=== PATIENT | female | born 1990 | race Caucasian/White ===

== ENCOUNTER 2017-04-26 18:09 | Inpatient (IN) | payer MEDICAID, OTHER ==
[2017-04-26] MEDS ORDERED: Ondansetron 4 MG/2 ML SDV IVPUSH ONE (18:41)
[2017-04-26] MEDS ORDERED: Sodium Chloride 0.9% 1,000 ML IV ONE ×3 (18:41→21:14)
--- NOTE | 2017-04-26 18:44 | EDM.PDOC ---
ED HPI GENERAL MEDICAL PROBLEM - General Chief Complaint: Gastrointestinal Problem Stated Complaint: ABDOMINAL PAIN, VOMITING, DEHYDRATION Time Seen by Provider: 04/26/17 18:41 Source of Information: Reports: Patient History Limitations: Reports: No Limitations - History of Present Illness INITIAL COMMENTS - FREE TEXT/NARRATIVE: History of present illness: [26-year-old female comes in with complaints of nausea vomiting diarrhea times the last 5 days] Review of systems: As per history of present illness and below otherwise all systems reviewed and negative. Past medical history: As per history of present illness and as reviewed below otherwise noncontributory. Surgical history: As per history of present illness and as reviewed below otherwise noncontributory. Social history: No reported history of drug or alcohol abuse. Family history: As per history of present illness and as reviewed below otherwise noncontributory. Physical exam: HEENT: Atraumatic, normocephalic, pupils reactive, negative for conjunctival pallor or scleral icterus, mucous membranes moist, throat clear, neck supple, nontender, trachea midline. Lungs: Clear to auscultation, breath sounds equal bilaterally, chest nontender. Heart: S1S2, regular, negative for clicks, rubs, or JVD. Abdomen: Soft, diffuse nonspecific tenderness throughout entire abdomen. Negative for masses or hepatosplenomegaly. Negative for costovertebral tenderness. Pelvis: Stable nontender. Genitourinary: Deferred. Rectal: Deferred. Extremities: Atraumatic, negative for cords or calf pain. Neurovascular unremarkable. Neuro: Awake, alert, oriented. Cranial nerves II through XII unremarkable. Cerebellum unremarkable. Motor and sensory unremarkable throughout. Exam nonfocal. 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 abdomen Pain Score (Numeric/FACES): 8 - Related Data Allergies Allergy/AdvReac Type Severity Reaction Status Date / Time No Known Allergies Allergy Verified 04/26/17 18:21 Home Meds: Home Meds Losartan Potassium 25 mg PO DAILY 04/26/17 [History] Venlafaxine [Effexor XR] 37.5 mg PO BEDTIME 04/26/17 [History] ED ROS GENERAL - Review of Systems Review Of Systems: See Below (See history of present illness) ED EXAM, GI/ABD - Physical Exam Exam: See Below (See history of present illness) Course - Vital Signs Last Recorded V/S: Last Vital Signs Temp 36.6 C 04/26/17 19:43 Pulse 61 04/26/17 20:25 Resp 18 04/26/17 20:25 BP 144/96 H 04/26/17 20:25 Pulse Ox 99 04/26/17 20:25 - Orders/Labs/Meds Orders: Active Orders 24 hr Category Date Time Status Abdomen Pelvis w Cont [CT] Stat Exams 04/26/17 19:46 Taken Sodium Chloride 0.9% [Normal Saline] 1,000 ml Med 04/26/17 21:14 Ordered IV STAT Sodium Chloride 0.9% [Normal Saline] 1,000 ml Med 04/26/17 21:14 Ordered IV STAT Medication Orders Sodium Chloride (Normal Saline) 1,000 mls @ 999 mls/hr IV STAT ONE Stop: 04/26/17 22:14 Sodium Chloride (Normal Saline) 1,000 mls @ 999 mls/hr IV STAT ONE Stop: 04/26/17 22:14 Labs: Laboratory Tests 04/26/17 04/26/17 04/26/17 Range/Units 19:00 19:00 19:00 WBC 18.92 H (4.0-11.0) K/uL RBC 5.34 (4.30-5.90) M/uL Hgb 16.1 H (12.0-16.0) g/dL Hct 47.1 H (36.0-46.0) % MCV 88.2 (80.0-98.0) fL MCH 30.1 (27.0-32.0) pg MCHC 34.2 (31.0-37.0) g/dL RDW Std Deviation 45.1 (28.0-62.0) fl RDW Coeff of Sherwin 14 (11.0-15.0) % Plt Count 292 (150-400) K/uL MPV 10.70 (7.40-12.00) fL Neut % (Auto) 92.8 H (48.0-80.0) % Lymph % (Auto) 4.2 L (16.0-40.0) % [place] % (Auto) 2.9 (0.0-15.0) % Eos % (Auto) 0.0 (0.0-7.0) % Baso % (Auto) 0.1 (0.0-1.5) % Neut # (Auto) 17.6 H (1.4-5.7) K/uL Lymph # (Auto) 0.8 (0.6-2.4) K/uL [place] # (Auto) 0.6 (0.0-0.8) K/uL Eos # (Auto) 0.0 (0.0-0.7) K/uL Baso # (Auto) 0.0 (0.0-0.1) K/uL Nucleated RBC % 0.0 /100WBC Nucleated RBCs # 0 K/uL Lactate (0.20-2.00) mmol/L Sodium 146 (136-146) mmol/L Potassium 3.8 (3.5-5.1) mmol/L Chloride 111 H (98-110) mmol/L Carbon Dioxide 23 (21-31) mmol/L BUN 19 (6.0-23.0) mg/dL Creatinine 0.9 (0.6-1.5) mg/dL Est Cr Clr Drug Dosing TNP Estimated GFR (MDRD) > 60.0 ml/min Glucose 176 H (60-110) mg/dL Hemoglobin A1c (0.0-6.0) % Calcium 9.3 (8.8-10.8) mg/dL Total Bilirubin 0.6 (0.1-1.5) mg/dL AST 13 (5-40) IU/L ALT 11 (8-54) IU/L Alkaline Phosphatase 64 (40-150) Total Protein 8.0 (6.0-8.0) g/dL Albumin 5.0 (3.5-5.0) g/dL Globulin 3.0 (2.0-3.5) g/dL Albumin/Globulin Ratio 1.7 (1.3-2.8) Amylase 47 (10-90) U/L Lipase 9 (7-80) U/L HCG, Qual NEGATIVE (NEG) Urine Color Urine Appearance Urine pH (5.0-8.0) Ur Specific [place] (1.001-1.035) Urine Protein (NEGATIVE) mg/dL Urine Glucose (UA) (NEGATIVE) mg/dL Urine Ketones (NEGATIVE) mg/dL Urine Occult Blood (NEGATIVE) Urine Nitrite (NEGATIVE) Urine Bilirubin (NEGATIVE) Urine Ictotest Urine Urobilinogen (<2.0) EU/dL Ur Leukocyte Esterase (NEGATIVE) Urine RBC (0-2/HPF) Urine WBC (0-5/HPF) Ur Epithelial Cells (NONE-FEW) Urine Bacteria (NEGATIVE) Urine Mucus (NONE-MOD) 04/26/17 04/26/17 04/26/17 Range/Units 19:00 19:45 19:55 WBC (4.0-11.0) K/uL RBC (4.30-5.90) M/uL Hgb (12.0-16.0) g/dL Hct (36.0-46.0) % MCV (80.0-98.0) fL MCH (27.0-32.0) pg MCHC (31.0-37.0) g/dL RDW Std Deviation (28.0-62.0) fl RDW Coeff of Sherwin (11.0-15.0) % Plt Count (150-400) K/uL MPV (7.40-12.00) fL Neut % (Auto) (48.0-80.0) % Lymph % (Auto) (16.0-40.0) % [place] % (Auto) (0.0-15.0) % Eos % (Auto) (0.0-7.0) % Baso % (Auto) (0.0-1.5) % Neut # (Auto) (1.4-5.7) K/uL Lymph # (Auto) (0.6-2.4) K/uL [place] # (Auto) (0.0-0.8) K/uL Eos # (Auto) (0.0-0.7) K/uL Baso # (Auto) (0.0-0.1) K/uL Nucleated RBC % /100WBC Nucleated RBCs # K/uL Lactate 2.4 H (0.20-2.00) mmol/L Sodium (136-146) mmol/L Potassium (3.5-5.1) mmol/L Chloride (98-110) mmol/L Carbon Dioxide (21-31) mmol/L BUN (6.0-23.0) mg/dL Creatinine (0.6-1.5) mg/dL Est Cr Clr Drug Dosing Estimated GFR (MDRD) ml/min Glucose (60-110) mg/dL Hemoglobin A1c 5.3 (0.0-6.0) % Calcium (8.8-10.8) mg/dL Total Bilirubin (0.1-1.5) mg/dL AST (5-40) IU/L ALT (8-54) IU/L Alkaline Phosphatase (40-150) Total Protein (6.0-8.0) g/dL Albumin (3.5-5.0) g/dL Globulin (2.0-3.5) g/dL Albumin/Globulin Ratio (1.3-2.8) Amylase (10-90) U/L Lipase (7-80) U/L HCG, Qual (NEG) Urine Color YELLOW Urine Appearance SLT CLOUDY Urine pH 6.0 (5.0-8.0) Ur Specific [place] >= 1.030 (1.001-1.035) Urine Protein 100 (NEGATIVE) mg/dL Urine Glucose (UA) NEGATIVE (NEGATIVE) mg/dL Urine Ketones TRACE H (NEGATIVE) mg/dL Urine Occult Blood TRACE-INTACT (NEGATIVE) Urine Nitrite NEGATIVE (NEGATIVE) Urine Bilirubin SMALL H (NEGATIVE) Urine Ictotest NEGATIVE Urine Urobilinogen 0.2 (<2.0) EU/dL Ur Leukocyte Esterase NEGATIVE (NEGATIVE) Urine RBC 0-1 (0-2/HPF) Urine WBC 0-1 (0-5/HPF) Ur Epithelial Cells FEW (NONE-FEW) Urine Bacteria 1+ H (NEGATIVE) Urine Mucus HEAVY (NONE-MOD) Meds: Medications Generic Name Dose Route Start Last Admin Trade Name Freq PRN Reason Stop Dose Admin Sodium Chloride 1,000 mls @ 999 mls/hr 04/26/17 21:14 Normal Saline IV 04/26/17 22:14 STAT ONE Sodium Chloride 1,000 mls @ 999 mls/hr 04/26/17 21:14 Normal Saline IV 04/26/17 22:14 STAT ONE Discontinued Medications Generic Name Dose Route Start Last Admin Trade Name Freq PRN Reason Stop Dose Admin Sodium Chloride 1,000 mls @ 999 mls/hr 04/26/17 18:41 04/26/17 18:43 Normal Saline IV 04/26/17 19:41 999 mls/hr STAT ONE Administration Iopamidol 60 ml 04/26/17 19:52 04/26/17 19:53 Isovue Multipack-370 (76%) IVPUSH 04/26/17 19:53 60 ml ONETIME STA Administration Ketorolac Tromethamine 30 mg 04/26/17 19:45 04/26/17 20:22 Toradol IVPUSH 04/26/17 19:46 30 mg ONETIME ONE Administration Morphine Sulfate 4 mg 04/26/17 21:14 Morphine IV 04/26/17 21:15 ONETIME ONE Ondansetron HCl 4 mg 04/26/17 18:41 04/26/17 18:48 Zofran IVPUSH 04/26/17 18:42 4 mg ONETIME ONE Administration Departure - Departure Time of Disposition: 21:44 Disposition: Admitted As Inpatient 66 Condition: Good Clinical Impression: Colitis - Discharge Information Forms: ED Department Discharge - My Orders Last 24 Hours: My Active Orders 04/26/17 19:46 Abdomen Pelvis w Cont [CT] Stat 04/26/17 21:14 Sodium Chloride 0.9% [Normal Saline] 1,000 ml IV STAT Sodium Chloride 0.9% [Normal Saline] 1,000 ml IV STAT - Assessment/Plan Last 24 Hours: My Active Orders 04/26/17 19:46 Abdomen Pelvis w Cont [CT] Stat 04/26/17 21:14 Sodium Chloride 0.9% [Normal Saline] 1,000 ml IV STAT Sodium Chloride 0.9% [Normal Saline] 1,000 ml IV STAT
[2017-04-26 19:33] LABS: CHLORIDE,CL 111 mmol/L (98-110); SODIUM,NA 146 mmol/L (136-146)
[2017-04-26] MEDS ORDERED: Ketorolac 30 MG/ML SDV IVPUSH ONE (19:45)
[2017-04-26] MEDS ORDERED: Iopamidol 755 MG/ML 500 ML Multipack Bottle IVPUSH STA (19:52)
[2017-04-26] MEDS ORDERED: Morphine 10 MG/ML Syringe IV ONE (21:14)
[2017-04-26] MEDS ORDERED: metroNIDAZOLE/Normal Saline 500 MG in Premix Bag 1 BAG IV ONE (21:54)
--- NOTE | 2017-04-26 22:08 | PCM.HP ---
H&P History of Present Illness - General Date of Service: 04/26/17 Admit Problem/Dx: Admission Diagnosis/Problem Admission Diagnosis/Problem Colitis - History of Present Illness Initial Comments - Free Text/Narative: she presented to the ED today with recent vomiting, chills, frequent diarrhea and diffuse abdominal pain. abdomen Pain Score (Numeric/FACES): 8 - Related Data Allergies/Adverse Reactions: Allergies Allergy/AdvReac Type Severity Reaction Status Date / Time No Known Allergies Allergy Verified 04/26/17 18:21 Home Medications: Home Meds Losartan Potassium 25 mg PO DAILY 04/26/17 [History] Venlafaxine [Effexor XR] 37.5 mg PO BEDTIME 04/26/17 [History] Past Medical History - Past Health History Medical/Surgical History: Denies Medical/Surgical History Cardiovascular History: Reports: Hypertension, Other (See Below) Other Cardiovascular History: WPWS Respiratory History: Denies: COPD Gastrointestinal History: Denies: Celiac Disease, Cirrhosis, Inflammatory Bowel Disease Genitourinary History: Denies: Chronic Renal Insuffiency [employer] History: Reports: Neurological History: Denies: CVA Psychiatric History: Reports: Depression Endocrine/Metabolic History: Denies: Diabetes, Type I, Diabetes, Type II Oncologic (Cancer) History: Reports: None - Past Surgical History Female Surgical History: Reports: Tubal Ligation Social & Family History - Family History Family Medical History: Noncontributory - Tobacco Use Smoking Status *Q: Current Every Day Smoker Years of Tobacco use: 15 Packs/Tins Daily: 1 - Recreational Drug Use Recreational Drug Use: No H&P Review of Systems - Review of Systems: Review Of Systems: See Below General: Reports: Chills, Malaise, Weakness Pulmonary: Denies: Shortness of Breath, Wheezing, Cough, Sputum, Hemoptysis Cardiovascular: Reports: Palpitations (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 ). Denies: Chest Pain, Claudication Gastrointestinal: Reports: Abdominal Pain, Diarrhea, Vomiting. Denies: Black Stool, Bloody Stool, Hematemesis, Hematochezia Genitourinary: Denies: Dysuria, Hematuria Exam - Exam Exam: See Below - Vital Signs Vital Signs: Last Vital Signs Temp 98 F 04/26/17 21:48 Pulse 65 04/26/17 21:48 Resp 18 04/26/17 21:48 BP 147/91 H 04/26/17 21:48 Pulse Ox 99 04/26/17 21:48 Weight: 51.4 kg - Exam General: Alert, Oriented, Cooperative HEENT: Conjunctiva Clear, Mucosa Moist & [place] Neck: Supple, Trachea Midline Lungs: Clear to Auscultation, Normal Respiratory Effort Cardiovascular: Regular Rate, Regular Rhythm Abdomen: Soft, Tenderness (mild diffuse tenderness). No: Distention (Female) Exam: Deferred Rectal (Female) Exam: Deferred Extremities: No: Edema Neurological: Cranial Nerves Intact, Normal Speech Neuro Extensive - Mental Status: Other (tearful) Psychiatric: No: Agitated, Hallucinations - Patient Data Result Diagrams: 04/26/17 19:00 04/26/17 19:00 *Q Meaningful Use (ADM) - VTE *Q VTE Criteria *Q: - Stroke *Q Stroke Criteria *Q: - AMI *Q AMI Criteria *Q: - Problem List (1) Enteritis SNOMED Code(s): 16726076 ICD Code: K52.9 - NONINFECTIVE GASTROENTERITIS AND COLITIS, UNSPECIFIED Status: Acute Current Visit: Yes Problem List Initiated/Reviewed/Updated: Yes Orders Last 24hrs: Active Orders 24 hr Category Date Time Status metroNIDAZOLE/Normal Saline [Flagyl 500 MG in NS 100 ML Med 04/26/17 21:54 Active ] 500 mg Premix Bag 1 bag IV ONETIME Medication Orders Sodium Chloride (Normal Saline) 1,000 mls @ 999 mls/hr IV STAT ONE Stop: 04/26/17 22:14 Last Admin: 04/26/17 21:36 Dose: 999 mls/hr Sodium Chloride (Normal Saline) 1,000 mls @ 999 mls/hr IV STAT ONE Stop: 04/26/17 22:14 Metronidazole 500 mg/ Premix 100 mls @ 100 mls/hr IV ONETIME ONE Stop: 04/26/17 22:53 Assessment/Plan Comment:: She presents with recent chills, profuse diarrhea and vomiting and diffuse abdominal pain with CT findings suggestive of enteritis. In light of her leukocytosis , will cover with antibiotics for now. close monitoring and supportive care. Ulises Juarez MD
[2017-04-26] MEDS ORDERED: Acetaminophen 325 MG Tab PO PRN (22:10)
[2017-04-26] MEDS ORDERED: Temazepam 15 MG Cap PO PRN (22:10)
[2017-04-26] MEDS ORDERED: Levofloxacin/Dextrose 5%-Water 500 MG in Premix Bag 1 BAG IV SCH (22:15)
[2017-04-26] MEDS: NS + KCl 20mEq/L 1,000 ML IV SCH (23:16)
[2017-04-26] MEDS: Ondansetron 4 MG/2 ML SDV IVPUSH PRN (23:19)
[2017-04-26] MEDS: Morphine 10 MG/ML Syringe IVPUSH PRN (23:37)
[2017-04-27] MEDS: Morphine 10 MG/ML Syringe IVPUSH PRN ×2 (02:16→08:43)
[2017-04-27] MEDS: Ondansetron 4 MG/2 ML SDV IVPUSH PRN ×3 (03:32→14:05)
[2017-04-27] MEDS ORDERED: metroNIDAZOLE/Normal Saline 500 MG in Premix Bag 1 BAG IV SCH (04:00)
[2017-04-27 05:04] LABS: CHLORIDE,CL 113 mmol/L (98-110); SODIUM,NA 140 mmol/L (136-146)
[2017-04-27] MEDS: NS + KCl 20mEq/L 1,000 ML IV SCH (11:13)
--- NOTE | 2017-04-27 11:45 | PCM.PN ---
- General Info Date of Service: 04/27/17 Functional Status: Reports: pain controlled, tolerating diet, urinating - Review of Systems General: Reports: No Symptoms HEENT: Reports: no symptoms Pulmonary: Reports: no symptoms Cardiovascular: Reports: No Symptoms Gastrointestinal: Reports: No symptoms Genitourinary: Reports: no symptoms Musculoskeletal: Reports: no symptoms Skin: Reports: no symptoms Neurological: Reports: No Symptoms Psychiatric: Reports: no symptoms - Patient Data Vitals - most recent: Last Vital Signs Temp 97.0 F 04/27/17 08:00 Pulse 66 04/27/17 08:00 Resp 18 04/27/17 08:00 BP 115/60 04/27/17 08:00 Pulse Ox 97 04/27/17 08:00 Weight - most recent: 51.4 kg I&O - last 24 hours: Intake & Output 04/26/17 04/27/17 04/27/17 22:59 06:59 14:59 Intake Total 200 811 Output Total 500 Balance 200 311 Lab Results last 24 hrs: Laboratory Results - last 24 hr 04/27/17 04/27/17 04/27/17 Range/Units 04:33 04:33 04:33 WBC 12.63 H (4.0-11.0) K/uL RBC 4.03 L (4.30-5.90) M/uL Hgb 11.7 L (12.0-16.0) g/dL Hct 35.6 L (36.0-46.0) % MCV 88.3 (80.0-98.0) fL MCH 29.0 (27.0-32.0) pg MCHC 32.9 (31.0-37.0) g/dL RDW Std Deviation 45.1 (28.0-62.0) fl RDW Coeff of Sherwin 14 (11.0-15.0) % Plt Count 235 (150-400) K/uL MPV 10.40 (7.40-12.00) fL Neut % (Auto) 78.6 (48.0-80.0) % Lymph % (Auto) 13.5 L (16.0-40.0) % [place] % (Auto) 7.8 (0.0-15.0) % Eos % (Auto) 0.0 (0.0-7.0) % Baso % (Auto) 0.1 (0.0-1.5) % Neut # (Auto) 9.9 H (1.4-5.7) K/uL Lymph # (Auto) 1.7 (0.6-2.4) K/uL [place] # (Auto) 1.0 H (0.0-0.8) K/uL Eos # (Auto) 0.0 (0.0-0.7) K/uL Baso # (Auto) 0.0 (0.0-0.1) K/uL Nucleated RBC % 0.0 /100WBC Nucleated RBCs # 0 K/uL Lactate 1.2 (0.20-2.00) mmol/L Sodium 140 (136-146) mmol/L Potassium 3.9 (3.5-5.1) mmol/L Chloride 113 H (98-110) mmol/L Carbon Dioxide 21 (21-31) mmol/L BUN 13 (6.0-23.0) mg/dL Creatinine 0.7 (0.6-1.5) mg/dL Est Cr Clr Drug Dosing 87.48 mL/min Estimated GFR (MDRD) > 60.0 ml/min Glucose 112 H (60-110) mg/dL Calcium 7.8 L (8.8-10.8) mg/dL Magnesium 1.5 (1.5-2.3) mEq/L Total Bilirubin 0.4 (0.1-1.5) mg/dL AST 11 (5-40) IU/L ALT 9 (8-54) IU/L Alkaline Phosphatase 46 (40-150) Total Protein 5.9 L (6.0-8.0) g/dL Albumin 3.7 (3.5-5.0) g/dL Globulin 2.2 (2.0-3.5) g/dL Albumin/Globulin Ratio 1.7 (1.3-2.8) Med Orders - Current: Current Medications Acetaminophen (Tylenol) 650 mg PO Q4H PRN PRN Reason: Pain (Mild 1-3)/fever Potassium Chloride/Sodium Chloride (Normal Saline With 20 Meq Kcl) 1,000 mls @ 125 mls/hr IV ASDIRECTED [facility] Last Admin: 04/27/17 11:13 Dose: 125 mls/hr Morphine Sulfate (Morphine) 4 mg IVPUSH Q2H PRN PRN Reason: Pain (severe 7-10) Stop: 04/27/17 22:11 Last Admin: 04/27/17 08:43 Dose: 4 mg Ondansetron HCl (Zofran) 4 mg IVPUSH Q4H PRN PRN Reason: Nausea Last Admin: 04/27/17 08:43 Dose: 4 mg Temazepam (Restoril) 15 mg PO BEDTIME PRN PRN Reason: Sleep Venlafaxine HCl (Effexor Xr) 37.5 mg PO BEDTIME RONNIE Discontinued Medications Sodium Chloride (Normal Saline) 1,000 mls @ 999 mls/hr IV STAT ONE Stop: 04/26/17 19:41 Last Admin: 04/26/17 18:43 Dose: 999 mls/hr Sodium Chloride (Normal Saline) 1,000 mls @ 999 mls/hr IV STAT ONE Stop: 04/26/17 22:14 Last Admin: 04/26/17 21:36 Dose: 999 mls/hr Sodium Chloride (Normal Saline) 1,000 mls @ 999 mls/hr IV STAT ONE Stop: 04/26/17 22:14 Last Admin: 04/26/17 22:31 Dose: Not Given Metronidazole 500 mg/ Premix 100 mls @ 100 mls/hr IV ONETIME ONE Stop: 04/26/17 22:53 Last Admin: 04/26/17 22:21 Dose: 100 mls/hr Levofloxacin/Dextrose 500 mg/ (Premix) 100 mls @ 100 mls/hr IV Q24H [facility] Last Admin: 04/26/17 23:24 Dose: 100 mls/hr Metronidazole 500 mg/ Premix 100 mls @ 100 mls/hr IV Q6H [facility] Last Admin: 04/27/17 03:32 Dose: 100 mls/hr Iopamidol (Isovue Multipack-370 (76%)) 60 ml IVPUSH ONETIME STA Stop: 04/26/17 19:53 Last Admin: 04/26/17 19:53 Dose: 60 ml Ketorolac Tromethamine (Toradol) 30 mg IVPUSH ONETIME ONE Stop: 04/26/17 19:46 Last Admin: 04/26/17 20:22 Dose: 30 mg Morphine Sulfate (Morphine) 4 mg IV ONETIME ONE Stop: 04/26/17 21:15 Last Admin: 04/26/17 21:39 Dose: 4 mg Ondansetron HCl (Zofran) 4 mg IVPUSH ONETIME ONE Stop: 04/26/17 18:42 Last Admin: 04/26/17 18:48 Dose: 4 mg - Exam General: alert, oriented HEENT: Pupils equal, EOMI Neck: supple, trachea midline Lungs: Decreased breath sounds Cardiovascular: Regular Rate, Regular Rhythm Abdomen: bowel sounds present, soft, tenderness Back Exam: Normal Inspection, Full Range of Motion Extremities: no edema - Problem List Review Problem List Initiated/Reviewed/Updated: Yes - Plan Plan:: Enteritis most likely viral lactate normal, wbc is trending down. JAKE levaquin and flagyl. continue IVF and regular diet as tolerated anticipate discharge tomorrow
[2017-04-27 11:51] VITALS: BP 117/67
--- NOTE | 2017-04-27 13:18 | CT ---
EXAM DATE: 04/26/17 PATIENT'S AGE: 26 Patient: KOSTAS CANTU Facility: [place], [place] Site . Site : 1990 Study: CT Abdomen/Pelvis [id number]/12/2017 8:26:08 PM Ordering Physician: Doctor Perez Final Report: HISTORY: Nausea and vomiting. TECHNIQUE: The abdomen and pelvis were scanned using helical technique at 3 mm intervals after 60 cc Isovue-370. Sagittal and coronal reconstructions were performed. FINDINGS: Lung bases: No infiltrate. Liver and gallbladder: The liver parenchyma is homogeneous. A 1.2 cm hypodensity seen within the medial segment left lobe liver near the ligament of teres most consistent a focus of fatty infiltration. No calcified gallstones. Spleen, pancreas and adrenal glands: Unremarkable. Kidneys and bladder: Symmetric nephrograms. No hydronephrosis. There is a tiny nonobstructing stone seen in the mid pole of the right kidney. Bladder is within normal limits. Retroperitoneum and lymph nodes: The abdominal aorta is normal in caliber. No pathologic soila aortic lymphadenopathy is seen. There is small mesenteric lymph nodes seen in the right lower quadrant and at the root of the mesentery. GI tract: There is fluid in the fundus of the stomach. No dilated small bowel loops are seen. There is some wall thickening seen within distal small bowel loops of the pelvis with some frothy stool-like contents. The terminal ileum is more normal in appearance. The appendix is normal. The colon is decompressed which results in diffuse wall thickening. There is no pericolonic inflammatory change. There is no free air in the abdomen. There is mild to moderate amount of free fluid within the pelvis. Pelvic organs: Uterus is normal. Clips from bilateral tubal ligation are present. The ovaries are within normal limits. Abdominal wall: Small fat containing umbilical hernia without incarceration. Osseous structures: Normal for age. IMPRESSION: 1. There is mild wall thickening of small bowel loops within the pelvis. This may represent enteritis. Wall thickening of distal small bowel is raises question of Crohn`s disease; however, the terminal ileum is more normal in appearance. 2. Mild to moderate of fluid within the pelvis. This could be physiologic or reactive. 3. Normal appendix. 4. Bilateral tubal ligation clips in place. Uterus and ovaries are unremarkable. 5. Tiny nonobstructing stone right kidney. Dictated by Mary Jane Sun MD @ 04/26/2017 8:52:48 PM Dictated by: Mary Jane Sun MD @ 04/26/2017 20:53:20 (Electronic Signature) Report Signed by Proxy. [facility]
--- NOTE | 2017-04-27 13:50 | PCM.DCSUM1 ---
<Wen Rush - Last Filed: 04/27/17 13:50> Discharge Summary - Discharge Data Discharge Date: 04/27/17 Discharge Disposition: Home, Self-Care 01 Condition: Good - Patient Instructions Diet: Usual Diet as Tolerated, Drink 8-10+ Glasses/Day, No Alcoholic Beverages Activity: As Tolerated Driving: Do Not Drive Showering/Bathing: May Shower Notify Provider of: Fever, Increased Pain, Swelling and Redness, Drainage, Nausea and/or Vomiting - Discharge Plan Prescriptions/Med Rec: Ondansetron HCl [Zofran] 4 mg PO Q4HR PRN #10 tablet PRN Reason: Nausea Home Medications: Home Meds Losartan Potassium 25 mg PO DAILY 04/26/17 [History] Venlafaxine [Effexor XR] 37.5 mg PO BEDTIME 04/26/17 [History] Ondansetron HCl [Zofran] 4 mg PO Q4HR PRN #10 tablet 04/27/17 [Rx] Patient Handouts: Ondansetron tablets, Nausea, Adult, [id number], Colitis Referrals: [facility] [Outside] - General Info Date of Service: 04/27/17 Functional Status: Reports: pain controlled, tolerating diet, ambulating, urinating - Review of Systems General: Reports: No Symptoms HEENT: Reports: no symptoms Pulmonary: Reports: no symptoms Cardiovascular: Reports: No Symptoms Gastrointestinal: Reports: No symptoms Genitourinary: Reports: no symptoms Musculoskeletal: Reports: no symptoms Skin: Reports: no symptoms Neurological: Reports: No Symptoms Psychiatric: Reports: no symptoms - Patient Data Vitals - Most Recent: Last Vital Signs Temp 98.7 F 04/27/17 11:50 Pulse 57 L 04/27/17 11:50 Resp 18 04/27/17 11:50 BP 117/67 04/27/17 11:50 Pulse Ox 97 04/27/17 11:50 Weight - Most Recent: 51.4 kg I&O - Last 24 hours: Intake & Output 04/26/17 04/27/17 04/27/17 22:59 06:59 14:59 Intake Total 200 811 Output Total 500 Balance 200 311 Lab Results - Last 24 hrs: Laboratory Results - last 24 hr 04/27/17 04/27/17 04/27/17 Range/Units 04:33 04:33 04:33 WBC 12.63 H (4.0-11.0) K/uL RBC 4.03 L (4.30-5.90) M/uL Hgb 11.7 L (12.0-16.0) g/dL Hct 35.6 L (36.0-46.0) % MCV 88.3 (80.0-98.0) fL MCH 29.0 (27.0-32.0) pg MCHC 32.9 (31.0-37.0) g/dL RDW Std Deviation 45.1 (28.0-62.0) fl RDW Coeff of Sherwin 14 (11.0-15.0) % Plt Count 235 (150-400) K/uL MPV 10.40 (7.40-12.00) fL Neut % (Auto) 78.6 (48.0-80.0) % Lymph % (Auto) 13.5 L (16.0-40.0) % [place] % (Auto) 7.8 (0.0-15.0) % Eos % (Auto) 0.0 (0.0-7.0) % Baso % (Auto) 0.1 (0.0-1.5) % Neut # (Auto) 9.9 H (1.4-5.7) K/uL Lymph # (Auto) 1.7 (0.6-2.4) K/uL [place] # (Auto) 1.0 H (0.0-0.8) K/uL Eos # (Auto) 0.0 (0.0-0.7) K/uL Baso # (Auto) 0.0 (0.0-0.1) K/uL Nucleated RBC % 0.0 /100WBC Nucleated RBCs # 0 K/uL Lactate 1.2 (0.20-2.00) mmol/L Sodium 140 (136-146) mmol/L Potassium 3.9 (3.5-5.1) mmol/L Chloride 113 H (98-110) mmol/L Carbon Dioxide 21 (21-31) mmol/L BUN 13 (6.0-23.0) mg/dL Creatinine 0.7 (0.6-1.5) mg/dL Est Cr Clr Drug Dosing 87.48 mL/min Estimated GFR (MDRD) > 60.0 ml/min Glucose 112 H (60-110) mg/dL Calcium 7.8 L (8.8-10.8) mg/dL Magnesium 1.5 (1.5-2.3) mEq/L Total Bilirubin 0.4 (0.1-1.5) mg/dL AST 11 (5-40) IU/L ALT 9 (8-54) IU/L Alkaline Phosphatase 46 (40-150) Total Protein 5.9 L (6.0-8.0) g/dL Albumin 3.7 (3.5-5.0) g/dL Globulin 2.2 (2.0-3.5) g/dL Albumin/Globulin Ratio 1.7 (1.3-2.8) Med Orders - Current: Current Medications Acetaminophen (Tylenol) 650 mg PO Q4H PRN PRN Reason: Pain (Mild 1-3)/fever Potassium Chloride/Sodium Chloride (Normal Saline With 20 Meq Kcl) 1,000 mls @ 125 mls/hr IV ASDIRECTED RONNIE Last Admin: 04/27/17 11:13 Dose: 125 mls/hr Morphine Sulfate (Morphine) 4 mg IVPUSH Q2H PRN PRN Reason: Pain (severe 7-10) Stop: 04/27/17 22:11 Last Admin: 04/27/17 08:43 Dose: 4 mg Ondansetron HCl (Zofran) 4 mg IVPUSH Q4H PRN PRN Reason: Nausea Last Admin: 04/27/17 08:43 Dose: 4 mg Temazepam (Restoril) 15 mg PO BEDTIME PRN PRN Reason: Sleep Venlafaxine HCl (Effexor Xr) 37.5 mg PO BEDTIME [facility] Discontinued Medications Sodium Chloride (Normal Saline) 1,000 mls @ 999 mls/hr IV STAT ONE Stop: 04/26/17 19:41 Last Admin: 04/26/17 18:43 Dose: 999 mls/hr Sodium Chloride (Normal Saline) 1,000 mls @ 999 mls/hr IV STAT ONE Stop: 04/26/17 22:14 Last Admin: 04/26/17 21:36 Dose: 999 mls/hr Sodium Chloride (Normal Saline) 1,000 mls @ 999 mls/hr IV STAT ONE Stop: 04/26/17 22:14 Last Admin: 04/26/17 22:31 Dose: Not Given Metronidazole 500 mg/ Premix 100 mls @ 100 mls/hr IV ONETIME ONE Stop: 04/26/17 22:53 Last Admin: 04/26/17 22:21 Dose: 100 mls/hr Levofloxacin/Dextrose 500 mg/ (Premix) 100 mls @ 100 mls/hr IV Q24H [facility] Last Admin: 04/26/17 23:24 Dose: 100 mls/hr Metronidazole 500 mg/ Premix 100 mls @ 100 mls/hr IV Q6H [facility] Last Admin: 04/27/17 03:32 Dose: 100 mls/hr Iopamidol (Isovue Multipack-370 (76%)) 60 ml IVPUSH ONETIME STA Stop: 04/26/17 19:53 Last Admin: 04/26/17 19:53 Dose: 60 ml Ketorolac Tromethamine (Toradol) 30 mg IVPUSH ONETIME ONE Stop: 04/26/17 19:46 Last Admin: 04/26/17 20:22 Dose: 30 mg Morphine Sulfate (Morphine) 4 mg IV ONETIME ONE Stop: 04/26/17 21:15 Last Admin: 04/26/17 21:39 Dose: 4 mg Ondansetron HCl (Zofran) 4 mg IVPUSH ONETIME ONE Stop: 04/26/17 18:42 Last Admin: 04/26/17 18:48 Dose: 4 mg - Exam General: Reports: alert, oriented, cooperative HEENT: Reports: Pupils equal, EOMI Lungs: Reports: Clear to auscultation, Normal respiratory effort Cardiovascular: Reports: Regular Rate, Regular Rhythm Abdomen: Reports: bowel sounds present, soft Extremities: Reports: no edema Skin: Reports: warm, dry, intact Neurological: Reports: no new focal deficit Psy/Mental Status: Reports: alert, normal affect, normal mood *Q Meaningful Use (DIS) - VTE *Q VTE Criteria *Q: - Stroke *Q Stroke Criteria *Q: - AMI *Q AMI Criteria *Q: <Ulises Juarez - Last Filed: 04/27/17 15:32> Discharge Summary - Hospital Course Brief History: she was admitted with the diagnosis of enteritis. - Discharge Diagnosis/Problem(s) (1) Enteritis SNOMED Code(s): 03480065 ICD Code: K52.9 - NONINFECTIVE GASTROENTERITIS AND COLITIS, UNSPECIFIED Status: Acute - Patient Summary/Data Hospital Course: she was treated with IV crystalloid. Because of her leukocytosis,she was treated in the hospital with flagyl and levaquin intravenously. On the day of discharge, her symptoms have resolved and it is thought that she likely has had a viral etiology to her enteritis. She is discharged home with follow up prn. It is not thought necessary to continue any antibiotics at discharge. Ulises Juarez MD - Patient Data Vitals - Most Recent: Last Vital Signs Temp 98.7 F 04/27/17 11:50 Pulse 57 L 04/27/17 11:50 Resp 18 04/27/17 11:50 BP 117/67 04/27/17 11:50 Pulse Ox 97 04/27/17 11:50 I&O - Last 24 hours: Intake & Output 04/27/17 04/27/17 04/27/17 06:59 14:59 22:59 Intake Total 811 1700 Output Total 500 800 Balance 311 900 Lab Results - Last 24 hrs: Laboratory Results - last 24 hr 04/27/17 04/27/17 04/27/17 Range/Units 04:33 04:33 04:33 WBC 12.63 H (4.0-11.0) K/uL RBC 4.03 L (4.30-5.90) M/uL Hgb 11.7 L (12.0-16.0) g/dL Hct 35.6 L (36.0-46.0) % MCV 88.3 (80.0-98.0) fL MCH 29.0 (27.0-32.0) pg MCHC 32.9 (31.0-37.0) g/dL RDW Std Deviation 45.1 (28.0-62.0) fl RDW Coeff of Sherwin 14 (11.0-15.0) % Plt Count 235 (150-400) K/uL MPV 10.40 (7.40-12.00) fL Neut % (Auto) 78.6 (48.0-80.0) % Lymph % (Auto) 13.5 L (16.0-40.0) % [place] % (Auto) 7.8 (0.0-15.0) % Eos % (Auto) 0.0 (0.0-7.0) % Baso % (Auto) 0.1 (0.0-1.5) % Neut # (Auto) 9.9 H (1.4-5.7) K/uL Lymph # (Auto) 1.7 (0.6-2.4) K/uL [place] # (Auto) 1.0 H (0.0-0.8) K/uL Eos # (Auto) 0.0 (0.0-0.7) K/uL Baso # (Auto) 0.0 (0.0-0.1) K/uL Nucleated RBC % 0.0 /100WBC Nucleated RBCs # 0 K/uL Lactate 1.2 (0.20-2.00) mmol/L Sodium 140 (136-146) mmol/L Potassium 3.9 (3.5-5.1) mmol/L Chloride 113 H (98-110) mmol/L Carbon Dioxide 21 (21-31) mmol/L BUN 13 (6.0-23.0) mg/dL Creatinine 0.7 (0.6-1.5) mg/dL Est Cr Clr Drug Dosing 87.48 mL/min Estimated GFR (MDRD) > 60.0 ml/min Glucose 112 H (60-110) mg/dL Calcium 7.8 L (8.8-10.8) mg/dL Magnesium 1.5 (1.5-2.3) mEq/L Total Bilirubin 0.4 (0.1-1.5) mg/dL AST 11 (5-40) IU/L ALT 9 (8-54) IU/L Alkaline Phosphatase 46 (40-150) Total Protein 5.9 L (6.0-8.0) g/dL Albumin 3.7 (3.5-5.0) g/dL Globulin 2.2 (2.0-3.5) g/dL Albumin/Globulin Ratio 1.7 (1.3-2.8) Med Orders - Current: Current Medications Discontinued Medications Acetaminophen (Tylenol) 650 mg PO Q4H PRN PRN Reason: Pain (Mild 1-3)/fever Sodium Chloride (Normal Saline) 1,000 mls @ 999 mls/hr IV STAT ONE Stop: 04/26/17 19:41 Last Admin: 04/26/17 18:43 Dose: 999 mls/hr Sodium Chloride (Normal Saline) 1,000 mls @ 999 mls/hr IV STAT ONE Stop: 04/26/17 22:14 Last Admin: 04/26/17 21:36 Dose: 999 mls/hr Sodium Chloride (Normal Saline) 1,000 mls @ 999 mls/hr IV STAT ONE Stop: 04/26/17 22:14 Last Admin: 04/26/17 22:31 Dose: Not Given Metronidazole 500 mg/ Premix 100 mls @ 100 mls/hr IV ONETIME ONE Stop: 04/26/17 22:53 Last Admin: 04/26/17 22:21 Dose: 100 mls/hr Levofloxacin/Dextrose 500 mg/ (Premix) 100 mls @ 100 mls/hr IV Q24H [facility] Last Admin: 04/26/17 23:24 Dose: 100 mls/hr Potassium Chloride/Sodium Chloride (Normal Saline With 20 Meq Kcl) 1,000 mls @ 125 mls/hr IV ASDIRECTED [facility] Last Admin: 04/27/17 11:13 Dose: 125 mls/hr Metronidazole 500 mg/ Premix 100 mls @ 100 mls/hr IV Q6H [facility] Last Admin: 04/27/17 03:32 Dose: 100 mls/hr Iopamidol (Isovue Multipack-370 (76%)) 60 ml IVPUSH ONETIME STA Stop: 04/26/17 19:53 Last Admin: 04/26/17 19:53 Dose: 60 ml Ketorolac Tromethamine (Toradol) 30 mg IVPUSH ONETIME ONE Stop: 04/26/17 19:46 Last Admin: 04/26/17 20:22 Dose: 30 mg Morphine Sulfate (Morphine) 4 mg IV ONETIME ONE Stop: 04/26/17 21:15 Last Admin: 04/26/17 21:39 Dose: 4 mg Morphine Sulfate (Morphine) 4 mg IVPUSH Q2H PRN PRN Reason: Pain (severe 7-10) Stop: 04/27/17 22:11 Last Admin: 04/27/17 08:43 Dose: 4 mg Ondansetron HCl (Zofran) 4 mg IVPUSH ONETIME ONE Stop: 04/26/17 18:42 Last Admin: 04/26/17 18:48 Dose: 4 mg Ondansetron HCl (Zofran) 4 mg IVPUSH Q4H PRN PRN Reason: Nausea Last Admin: 04/27/17 14:05 Dose: 4 mg Temazepam (Restoril) 15 mg PO BEDTIME PRN PRN Reason: Sleep Venlafaxine HCl (Effexor Xr) 37.5 mg PO BEDTIME RONNIE *Q Meaningful Use (DIS) - VTE *Q VTE Criteria *Q: - Stroke *Q Stroke Criteria *Q: - AMI *Q AMI Criteria *Q:
[2017-04-27] MEDS ORDERED: Venlafaxine 37.5 MG Cap.ER PO SCH (21:00)
== END 2017-04-27 14:52 | disposition home or self-care (01) | DRG 392 ==
LOC: MW.ED 18:09 → MW.MS 21:44
PROVIDERS: ADMIT Family Medicine; ATTEND Family Medicine
DX: K52.9 Noninfective gastroenteritis and colitis, unspecified (principal); I10 Essential (primary) hypertension; F17.210 Nicotine dependence, cigarettes, uncomplicated
CPT/HCPCS: 36415; 74177; 74177-26; 80053; 81001; 82150; 83036; 83605; 83690; 83735; 84703; 85025; 87040; 96361; 96374; 96375; 99283; 99285-25; J1885; J1956; J2270; J2405; J3480; J7040; Q9967

== ENCOUNTER 2017-04-28 08:11 | Inpatient (IN) | payer MEDICAID, OTHER ==
[2017-04-28] MEDS ORDERED: Sodium Chloride 0.9% 1,000 ML IV ONE (08:24)
[2017-04-28] MEDS ORDERED: Ondansetron 4 MG/2 ML SDV IVPUSH ONE ×2 (08:24→09:04)
--- NOTE | 2017-04-28 08:31 | EDM.PDOC ---
ED HPI GENERAL MEDICAL PROBLEM - General Chief Complaint: Gastrointestinal Problem Stated Complaint: VOMITTING, ABD PAIN Time Seen by Provider: 04/28/17 08:24 - History of Present Illness INITIAL COMMENTS - FREE TEXT/NARRATIVE: HISTORY AND PHYSICAL: History of present illness: Patient is 26-year-old white female was recently hospitalized for enteritis with presents with concern of recurrent abdominal pain nausea vomiting diarrhea she did not fever chills and states upon discharge from the hospital she was doing better Review of systems: As per history of present illness and below otherwise all systems reviewed and negative. Past medical history: As per history of present illness and as reviewed below otherwise noncontributory. Surgical history: As per history of present illness and as reviewed below otherwise noncontributory. Social history: No reported history of drug or alcohol abuse. Family history: As per history of present illness and as reviewed below otherwise noncontributory. Physical exam: HEENT: Atraumatic, normocephalic, pupils reactive, negative for conjunctival pallor or scleral icterus, mucous membranes dry, throat clear, neck supple, nontender, trachea midline. Lungs: Clear to auscultation, breath sounds equal bilaterally, chest nontender. Heart: S1S2, regular, negative for clicks, rubs, or JVD. Abdomen: Soft, nondistended, no localized tenderness. Negative for masses or hepatosplenomegaly. Negative for costovertebral tenderness. Pelvis: Stable nontender. Genitourinary: Deferred. Rectal: Deferred. Extremities: Atraumatic, negative for cords or calf pain. Neurovascular unremarkable. Neuro: Awake, alert, oriented. Cranial nerves II through XII unremarkable. Cerebellum unremarkable. Motor and sensory unremarkable throughout. Exam nonfocal. Diagnostics: CBC CMP lipase UA hCG UDS Therapeutics: Normal saline 1 L bolus Zofran 4 mg IV Impression: #1 abdominal pain #2 history of enteritis #3 dehydration Definitive disposition and diagnosis as appropriate pending reevaluation and review of above. - Related Data Allergies Allergy/AdvReac Type Severity Reaction Status Date / Time No Known Allergies Allergy Verified 04/28/17 08:14 Home Meds: Home Meds Losartan Potassium 25 mg PO DAILY 04/26/17 [History] Venlafaxine [Effexor XR] 37.5 mg PO BEDTIME 04/26/17 [History] Ondansetron HCl [Zofran] 4 mg PO Q4HR PRN #10 tablet 04/27/17 [Rx] Past Medical History - Past Health History Medical/Surgical History: Denies Medical/Surgical History Cardiovascular History: Reports: Hypertension, Other (See Below) Other Cardiovascular History: WPWS Gastrointestinal History: Reports: Other (See Below) Other Gastrointestinal History: abdominal pain [employer] History: Reports: Musculoskeletal History: Reports: Fracture, Other (See Below) Other Musculoskeletal History: right wrist Neurological History: Reports: Migraines Psychiatric History: Reports: Depression Oncologic (Cancer) History: Reports: None - Infectious Disease History Infectious Disease History: Reports: Chicken Pox - Past Surgical History Cardiovascular Surgical History: Reports: None GI Surgical History: Reports: EGD Female Surgical History: Reports: Tubal Ligation Neurological Surgical History: Reports: None Musculoskeletal Surgical History: Reports: None Social & Family History - Family History Family Medical History: Noncontributory - Tobacco Use Smoking Status *Q: Current Every Day Smoker Years of Tobacco use: 10 Packs/Tins Daily: 1 - Caffeine Use Caffeine Use: Reports: Soda, Tea - Recreational Drug Use Recreational Drug Use: No ED ROS GENERAL - Review of Systems Review Of Systems: ROS reveals no pertinent complaints other than HPI. ED EXAM, GENERAL - Physical Exam Exam: See Below (See dictation) Course - Vital Signs Last Recorded V/S: Last Vital Signs Temp 36.4 C 04/28/17 08:30 Pulse 54 L 04/28/17 08:30 Resp 18 04/28/17 08:30 BP 173/96 H 04/28/17 08:30 Pulse Ox 99 04/28/17 08:30 - Orders/Labs/Meds Orders: Active Orders 24 hr Category Date Time Status Patient Status [ADT] Stat ADT 04/28/17 10:02 Ordered Sodium Chloride 0.9% [Normal Saline] 1,000 ml Med 04/28/17 09:18 Active IV NOW Medication Orders Sodium Chloride (Normal Saline) 1,000 mls @ 999 mls/hr IV NOW STA Stop: 04/28/17 10:18 Last Admin: 04/28/17 09:24 Dose: 999 mls/hr Labs: Laboratory Tests 04/28/17 04/28/17 04/28/17 Range/Units 08:26 08:26 08:26 WBC 9.09 (4.0-11.0) K/uL RBC 4.85 (4.30-5.90) M/uL Hgb 14.5 (12.0-16.0) g/dL Hct 42.3 (36.0-46.0) % MCV 87.2 (80.0-98.0) fL MCH 29.9 (27.0-32.0) pg MCHC 34.3 (31.0-37.0) g/dL RDW Std Deviation 42.8 (28.0-62.0) fl RDW Coeff of [place]win 14 (11.0-15.0) % Plt Count 259 (150-400) K/uL MPV 10.90 (7.40-12.00) fL Neut % (Auto) 68.7 (48.0-80.0) % Lymph % (Auto) 24.8 (16.0-40.0) % [place] % (Auto) 5.0 (0.0-15.0) % Eos % (Auto) 0.9 (0.0-7.0) % Baso % (Auto) 0.6 (0.0-1.5) % Neut # (Auto) 6.3 H (1.4-5.7) K/uL Lymph # (Auto) 2.3 (0.6-2.4) K/uL [place] # (Auto) 0.5 (0.0-0.8) K/uL Eos # (Auto) 0.1 (0.0-0.7) K/uL Baso # (Auto) 0.1 (0.0-0.1) K/uL Nucleated RBC % 0.0 /100WBC Nucleated RBCs # 0 K/uL Sodium 141 (136-146) mmol/L Potassium 3.3 L (3.5-5.1) mmol/L Chloride 110 (98-110) mmol/L Carbon Dioxide 21 (21-31) mmol/L BUN 9 (6.0-23.0) mg/dL Creatinine 0.7 (0.6-1.5) mg/dL Est Cr Clr Drug Dosing 87.48 mL/min Estimated GFR (MDRD) > 60.0 ml/min Glucose 125 H (60-110) mg/dL Calcium 8.9 (8.8-10.8) mg/dL Total Bilirubin 0.5 (0.1-1.5) mg/dL AST 14 (5-40) IU/L ALT 9 (8-54) IU/L Alkaline Phosphatase 52 (40-150) Total Protein 7.4 (6.0-8.0) g/dL Albumin 4.6 (3.5-5.0) g/dL Globulin 2.8 (2.0-3.5) g/dL Albumin/Globulin Ratio 1.6 (1.3-2.8) Lipase 39 (7-80) U/L HCG, Qual NEGATIVE (NEG) Urine Color Urine Appearance Urine pH (5.0-8.0) Ur Specific [place] (1.001-1.035) Urine Protein (NEGATIVE) mg/dL Urine Glucose (UA) (NEGATIVE) mg/dL Urine Ketones (NEGATIVE) mg/dL Urine Occult Blood (NEGATIVE) Urine Nitrite (NEGATIVE) Urine Bilirubin (NEGATIVE) Urine Urobilinogen (<2.0) EU/dL Ur Leukocyte Esterase (NEGATIVE) Urine RBC (0-2/HPF) Urine WBC (0-5/HPF) Ur Epithelial Cells (NONE-FEW) Urine Bacteria (NEGATIVE) Urine Opiates Screen (NEGATIVE) Ur Oxycodone Screen (NEGATIVE) Urine Methadone Screen (NEGATIVE) Ur Barbiturates Screen (NEGATIVE) Ur Phencyclidine Scrn (NEGATIVE) Ur Amphetamine Screen (NEGATIVE) U Methamphetamines Scrn (NEGATIVE) U Benzodiazepines Scrn (NEGATIVE) U Cocaine Metab Screen (NEGATIVE) U Marijuana (THC) Screen (NEGATIVE) 04/28/17 04/28/17 Range/Units 08:35 08:35 WBC (4.0-11.0) K/uL RBC (4.30-5.90) M/uL Hgb (12.0-16.0) g/dL Hct (36.0-46.0) % MCV (80.0-98.0) fL MCH (27.0-32.0) pg MCHC (31.0-37.0) g/dL RDW Std Deviation (28.0-62.0) fl RDW Coeff of Sherwin (11.0-15.0) % Plt Count (150-400) K/uL MPV (7.40-12.00) fL Neut % (Auto) (48.0-80.0) % Lymph % (Auto) (16.0-40.0) % [place] % (Auto) (0.0-15.0) % Eos % (Auto) (0.0-7.0) % Baso % (Auto) (0.0-1.5) % Neut # (Auto) (1.4-5.7) K/uL Lymph # (Auto) (0.6-2.4) K/uL [place] # (Auto) (0.0-0.8) K/uL Eos # (Auto) (0.0-0.7) K/uL Baso # (Auto) (0.0-0.1) K/uL Nucleated RBC % /100WBC Nucleated RBCs # K/uL Sodium (136-146) mmol/L Potassium (3.5-5.1) mmol/L Chloride (98-110) mmol/L Carbon Dioxide (21-31) mmol/L BUN (6.0-23.0) mg/dL Creatinine (0.6-1.5) mg/dL Est Cr Clr Drug Dosing mL/min Estimated GFR (MDRD) ml/min Glucose (60-110) mg/dL Calcium (8.8-10.8) mg/dL Total Bilirubin (0.1-1.5) mg/dL AST (5-40) IU/L ALT (8-54) IU/L Alkaline Phosphatase (40-150) Total Protein (6.0-8.0) g/dL Albumin (3.5-5.0) g/dL Globulin (2.0-3.5) g/dL Albumin/Globulin Ratio (1.3-2.8) Lipase (7-80) U/L HCG, Qual (NEG) Urine Color YELLOW Urine Appearance CLEAR Urine pH 6.0 (5.0-8.0) Ur Specific [place] 1.020 (1.001-1.035) Urine Protein 30 (NEGATIVE) mg/dL Urine Glucose (UA) NEGATIVE (NEGATIVE) mg/dL Urine Ketones 15 H (NEGATIVE) mg/dL Urine Occult Blood NEGATIVE (NEGATIVE) Urine Nitrite NEGATIVE (NEGATIVE) Urine Bilirubin NEGATIVE (NEGATIVE) Urine Urobilinogen 0.2 (<2.0) EU/dL Ur Leukocyte Esterase NEGATIVE (NEGATIVE) Urine RBC NONE SEEN (0-2/HPF) Urine WBC NONE SEEN (0-5/HPF) Ur Epithelial Cells RARE (NONE-FEW) Urine Bacteria RARE (NEGATIVE) Urine Opiates Screen NEGATIVE (NEGATIVE) Ur Oxycodone Screen NEGATIVE (NEGATIVE) Urine Methadone Screen NEGATIVE (NEGATIVE) Ur Barbiturates Screen NEGATIVE (NEGATIVE) Ur Phencyclidine Scrn NEGATIVE (NEGATIVE) Ur Amphetamine Screen NEGATIVE (NEGATIVE) U Methamphetamines Scrn NEGATIVE (NEGATIVE) U Benzodiazepines Scrn NEGATIVE (NEGATIVE) U Cocaine Metab Screen NEGATIVE (NEGATIVE) U Marijuana (THC) Screen NEGATIVE (NEGATIVE) Meds: Medications Generic Name Dose Route Start Last Admin Trade Name Freq PRN Reason Stop Dose Admin Sodium Chloride 1,000 mls @ 999 mls/hr 04/28/17 09:18 04/28/17 09:24 Normal Saline IV 04/28/17 10:18 999 mls/hr NOW STA Administration Discontinued Medications Generic Name Dose Route Start Last Admin Trade Name Freq PRN Reason Stop Dose Admin Diphenhydramine HCl 25 mg 04/28/17 09:18 04/28/17 09:26 Benadryl IVPUSH 04/28/17 09:19 25 mg ONETIME ONE Administration Sodium Chloride 1,000 mls @ 999 mls/hr 04/28/17 08:24 04/28/17 08:41 Normal Saline IV 04/28/17 09:24 999 mls/hr .Bolus ONE Administration Metoclopramide HCl 10 mg 04/28/17 09:18 04/28/17 09:25 Reglan IVPUSH 04/28/17 09:19 10 mg ONETIME ONE Administration Ondansetron HCl 4 mg 04/28/17 08:24 04/28/17 08:41 Zofran IVPUSH 04/28/17 08:25 4 mg ONETIME ONE Administration Ondansetron HCl 4 mg 04/28/17 09:04 04/28/17 09:08 Zofran IVPUSH 04/28/17 09:05 4 mg ONETIME ONE Administration Departure - Departure Time of Disposition: 10:06 Disposition: Refer to Observation Condition: Good Clinical Impression: Vomiting, Abdominal pain - Discharge Information Forms: ED Department Discharge - My Orders Last 24 Hours: My Active Orders 04/28/17 09:18 Sodium Chloride 0.9% [Normal Saline] 1,000 ml IV NOW 04/28/17 10:02 Patient Status [ADT] Stat - Assessment/Plan Last 24 Hours: My Active Orders 04/28/17 09:18 Sodium Chloride 0.9% [Normal Saline] 1,000 ml IV NOW 04/28/17 10:02 Patient Status [ADT] Stat
[2017-04-28] MEDS ORDERED: Metoclopramide 10 MG/2 ML SDV IVPUSH ONE (09:18)
[2017-04-28] MEDS ORDERED: diphenhydrAMINE 50 MG/ML SDV IVPUSH ONE (09:18)
[2017-04-28] MEDS ORDERED: Sodium Chloride 0.9% 1,000 ML IV STA (09:18)
[2017-04-28 09:21] LABS: CHLORIDE,CL 110 mmol/L (98-110); SODIUM,NA 141 mmol/L (136-146)
[2017-04-28] MEDS: Sodium Chloride 0.9% 1,000 ML IV SCH ×2 (11:09→20:04)
[2017-04-28] MEDS: Morphine 2 MG/ML Syringe IVPUSH PRN ×2 (12:09→16:29)
--- NOTE | 2017-04-28 12:13 | PCM.HP ---
H&P History of Present Illness - General Date of Service: 04/28/17 Source of Information: Patient - History of Present Illness Initial Comments - Free Text/Narative: 26 yo female readmitted for enteritis. She was discharged yesterday in stable conditions. She said she was doing better but when she got home she had experienced abdominal pain,nausea and vomiting. She does not have fever, chills , diarrhea, dysuria, frequency , urgency, palpitations, chest pain or other pertinent symptoms. She is not . In the ED, CBC, CMP, UA and Utox unremarkable. She does not have a history of crohns or ulcerative colitis. abdomen Pain Score (Numeric/FACES): 9 - Related Data Allergies/Adverse Reactions: Allergies Allergy/AdvReac Type Severity Reaction Status Date / Time No Known Allergies Allergy Verified 04/28/17 08:14 Home Medications: Home Meds Losartan Potassium 25 mg PO DAILY 04/26/17 [History] Venlafaxine [Effexor XR] 37.5 mg PO BEDTIME 04/26/17 [History] Ondansetron HCl [Zofran] 4 mg PO Q4HR PRN #10 tablet 04/27/17 [Rx] Past Medical History - Past Health History Medical/Surgical History: Denies Medical/Surgical History Cardiovascular History: Reports: Hypertension, Other (See Below) Other Cardiovascular History: WPWS Gastrointestinal History: Reports: Other (See Below) Other Gastrointestinal History: abdominal pain [employer] History: Reports: Musculoskeletal History: Reports: Fracture, Other (See Below) Other Musculoskeletal History: right wrist Neurological History: Reports: Migraines Psychiatric History: Reports: Depression Oncologic (Cancer) History: Reports: None - Infectious Disease History Infectious Disease History: Reports: Chicken Pox - Past Surgical History Cardiovascular Surgical History: Reports: None GI Surgical History: Reports: EGD Female Surgical History: Reports: Tubal Ligation Neurological Surgical History: Reports: None Musculoskeletal Surgical History: Reports: None Social & Family History - Family History Family Medical History: Noncontributory - Tobacco Use Smoking Status *Q: Current Every Day Smoker Years of Tobacco use: 10 Packs/Tins Daily: 1 - Caffeine Use Caffeine Use: Reports: Soda, Tea - Recreational Drug Use Recreational Drug Use: No H&P Review of Systems - Review of Systems: Review Of Systems: See Below General: Reports: No Symptoms HEENT: Reports: No Symptoms Pulmonary: Reports: No Symptoms Cardiovascular: Reports: No Symptoms Gastrointestinal: Reports: Abdominal Pain, Nausea, Vomiting, Other (bilious vomiting). Denies: Black Stool, Bloody Stool, Diarrhea Genitourinary: Reports: No Symptoms Musculoskeletal: Reports: No Symptoms Skin: Reports: No Symptoms Psychiatric: Reports: No Symptoms Neurological: Reports: No Symptoms Exam - Exam Exam: See Below - Vital Signs Vital Signs: Last Vital Signs Temp 97.6 F 04/28/17 08:30 Pulse 57 L 04/28/17 10:00 Resp 18 04/28/17 11:00 BP 153/100 H 04/28/17 12:00 Pulse Ox 98 04/28/17 11:00 Weight: 52.6 kg - Exam General: Alert, Oriented, Cooperative, Mild Distress HEENT: Conjunctiva Clear, EOMI Neck: Supple, Trachea Midline Lungs: Clear to Auscultation, Normal Respiratory Effort Cardiovascular: Regular Rate, Regular Rhythm Abdomen: Soft, Hyperactive Bowel Sounds Back Exam: Normal Inspection Extremities: Normal Inspection - Patient Data Result Diagrams: 04/28/17 08:26 04/28/17 08:26 *Q Meaningful Use (ADM) - VTE *Q VTE Criteria *Q: - Stroke *Q Stroke Criteria *Q: - AMI *Q AMI Criteria *Q: Problem List Initiated/Reviewed/Updated: Yes Orders Last 24hrs: Active Orders 24 hr Category Date Time Status Abdomen Pelvis w Cont [CT] Stat Exams 04/28/17 10:16 Taken Morphine Med 04/28/17 10:18 Active 1 mg IVPUSH Q4H PRN Ondansetron [Zofran] Med 04/28/17 10:17 Active 4 mg IVPUSH Q4H PRN Sodium Chloride 0.9% [Normal Saline] 1,000 ml Med 04/28/17 10:30 Active IV ASDIRECTED Medication Orders Sodium Chloride (Normal Saline) 1,000 mls @ 125 mls/hr IV ASDIRECTED RONNIE Last Admin: 04/28/17 11:09 Dose: 125 mls/hr Morphine Sulfate (Morphine) 1 mg IVPUSH Q4H PRN PRN Reason: Pain Ondansetron HCl (Zofran) 4 mg IVPUSH Q4H PRN PRN Reason: Nausea Assessment/Plan Comment:: 26 yo female admitted for enteritis most likely viral NPO Obtain abd/pelvis CT with contrast to r/o obstruction 2/2 bilious vomiting. IVF @ 125 ml/hr IV zofran prn IV morphine prn
[2017-04-28] MEDS: Potassium Chloride 10% 20 MEQ/15 ML Soln 30 ML UD Cup PO SCH (13:07)
--- NOTE | 2017-04-28 13:24 | CT ---
EXAM DATE: 04/28/17 PATIENT'S AGE: 26 Patient: KOSTAS CANTU Facility: [place], [place] Site . Site : 1990 Study: CT Abdomen/Pelvis [id number]/14/2017 10:50:30 AM Ordering Physician: Audrey Goff Final Report: INDICATION: abd pain HISTORY: Abdominal pain. COMPARISON: CT of the abdomen and pelvis 04/26/2017. TECHNIQUE: CT of the abdomen and pelvis. 100 cc of Isovue-370 IV. Coronal/sagittal reconstruction images. FINDINGS: Lung bases: There is no pleural or pericardial effusion. The heart size is normal. The lung bases demonstrate no acute airspace disease. There is no basilar pneumothorax. Abdomen/pelvis: No solid hepatic mass. Hepatic morphology is normal. Region of diminished attenuation in segment 4 near the fissure for the falciform ligament, stable. This is likely focal fat deposition. No adrenal mass. No hydronephrosis. No perinephric edema. Spleen size is normal. No pancreatic mass or pancreatic duct dilation. Small amount of free fluid in the pelvis. No drainable fluid collection. Tubal ligation clips present about the fallopian tubes. No transition point to indicate a mechanical small bowel or colonic obstruction. Fluid-filled cecum and proximal ascending colon. Bowel wall thickening within the distal small bowel is improved today when compared with previous. There is no abdominal aortic aneurysm. The visceral artery branches are patent. There is no abdominal or pelvic lymphadenopathy by size criteria. The bone windows demonstrate no lytic or blastic bone lesions. The alignment is preserved. IMPRESSION: 1. Fold thickening within the small bowel is improved when compared with previous. Engorgement of vasa recta is improved. No mucosal hyper enhancement. An infectious enteritis is favored. 2. Small amount of free fluid in the pelvis, similar to previous. No loculated fluid collection indicate an abscess. 3. No other significant change. Dictated by Angel Doyle MD @ 04/28/2017 11:04:43 AM Dictated by: Angel Doyle MD @ 04/28/2017 11:05:10 (Electronic Signature) Report Signed by Proxy. ZUCKER HILLSIDE HOSPITALAlesha
[2017-04-28] MEDS: Ondansetron 4 MG/2 ML SDV IVPUSH PRN ×2 (14:02→18:31)
[2017-04-28] MEDS ORDERED: Iopamidol 755 MG/ML 500 ML Multipack Bottle IVPUSH STA (16:15)
[2017-04-28] MEDS: Morphine 4 MG/ML Syringe IVPUSH PRN (19:56)
[2017-04-28] MEDS: Promethazine 25 MG/ML SDV IM PRN (19:57)
[2017-04-28] MEDS: Losartan 50 MG Tab PO SCH (20:01)
[2017-04-28] MEDS: Venlafaxine 37.5 MG Cap.ER PO SCH (20:02)
[2017-04-29] MEDS: Ondansetron 4 MG/2 ML SDV IVPUSH PRN ×4 (00:51→17:37)
[2017-04-29] MEDS: Morphine 4 MG/ML Syringe IVPUSH PRN ×5 (00:54→17:32)
[2017-04-29] MEDS ORDERED: cloNIDine 0.1 MG Tab PO PRN (03:25)
[2017-04-29] MEDS: Promethazine 25 MG/ML SDV IM PRN (04:12)
[2017-04-29] MEDS: Sodium Chloride 0.9% 1,000 ML IV SCH ×3 (04:20→21:19)
[2017-04-29 07:10] LABS: CHLORIDE,CL 110 mmol/L (98-110); SODIUM,NA 141 mmol/L (136-146)
--- NOTE | 2017-04-29 09:20 | PCM.PN ---
- General Info Date of Service: 04/29/17 Subjective Update: nausea and vomiting improving. Functional Status: Reports: pain controlled - Review of Systems General: Reports: No Symptoms HEENT: Reports: no symptoms Pulmonary: Reports: no symptoms Cardiovascular: Reports: No Symptoms Gastrointestinal: Reports: Abdominal pain (improving) Musculoskeletal: Reports: no symptoms Skin: Reports: no symptoms Neurological: Reports: No Symptoms Psychiatric: Reports: no symptoms - Patient Data Vitals - most recent: Last Vital Signs Temp 96.7 F 04/29/17 03:57 Pulse 57 L 04/29/17 03:57 Resp 16 04/29/17 03:57 BP 174/95 H 04/29/17 04:13 Pulse Ox 97 04/29/17 03:57 Weight - most recent: 52.6 kg I&O - last 24 hours: Intake & Output 04/28/17 04/29/17 04/29/17 22:59 06:59 14:59 Intake Total 10 1375 Output Total 1100 1150 Balance -1090 225 Lab Results last 24 hrs: Laboratory Results - last 24 hr 04/29/17 04/29/17 Range/Units 06:20 06:20 WBC 10.27 (4.0-11.0) K/uL RBC 4.49 (4.30-5.90) M/uL Hgb 13.0 (12.0-16.0) g/dL Hct 39.0 (36.0-46.0) % MCV 86.9 (80.0-98.0) fL MCH 29.0 (27.0-32.0) pg MCHC 33.3 (31.0-37.0) g/dL RDW Std Deviation 42.2 (28.0-62.0) fl RDW Coeff of Sherwin 13 (11.0-15.0) % Plt Count 231 (150-400) K/uL MPV 10.40 (7.40-12.00) fL Neut % (Auto) 79.5 (48.0-80.0) % Lymph % (Auto) 14.4 L (16.0-40.0) % [place] % (Auto) 5.9 (0.0-15.0) % Eos % (Auto) 0.1 (0.0-7.0) % Baso % (Auto) 0.1 (0.0-1.5) % Neut # (Auto) 8.2 H (1.4-5.7) K/uL Lymph # (Auto) 1.5 (0.6-2.4) K/uL [place] # (Auto) 0.6 (0.0-0.8) K/uL Eos # (Auto) 0.0 (0.0-0.7) K/uL Baso # (Auto) 0.0 (0.0-0.1) K/uL Nucleated RBC % 0.0 /100WBC Nucleated RBCs # 0 K/uL Sodium 141 (136-146) mmol/L Potassium 3.5 (3.5-5.1) mmol/L Chloride 110 (98-110) mmol/L Carbon Dioxide 24 (21-31) mmol/L BUN 8 (6.0-23.0) mg/dL Creatinine 0.7 (0.6-1.5) mg/dL Est Cr Clr Drug Dosing 87.48 mL/min Estimated GFR (MDRD) > 60.0 ml/min Glucose 100 (60-110) mg/dL Calcium 8.1 L (8.8-10.8) mg/dL Emilio Results last 24 hrs: Microbiology 04/28/17 13:45 Campylobacter Antigen Assay - Final Stool / Feces NEGATIVE CAMPYLOBACTER AG - Final NEGATIVE FOR SHIGA TOXIN 1 - Final NEGATIVE FOR SHIGA TOXIN 2 Med Orders - Current: Current Medications Clonidine HCl (Catapres) 0.2 mg PO Q6H PRN PRN Reason: Hypertension Last Admin: 04/29/17 04:13 Dose: 0.2 mg Sodium Chloride (Normal Saline) 1,000 mls @ 125 mls/hr IV ASDIRECTED RONNIE Last Admin: 04/29/17 04:20 Dose: 125 mls/hr Losartan Potassium (Cozaar) 25 mg PO BEDTIME RONNIE Last Admin: 04/28/17 20:01 Dose: 25 mg Morphine Sulfate (Morphine) 4 mg IVPUSH Q2H PRN PRN Reason: Pain Last Admin: 04/29/17 04:14 Dose: 4 mg Ondansetron HCl (Zofran) 4 mg IVPUSH Q4H PRN PRN Reason: Nausea Last Admin: 04/29/17 00:51 Dose: 4 mg Potassium Chloride (Potassium Chloride) 40 meq PO DAILY RONNIE Last Admin: 04/28/17 13:07 Dose: 40 meq Promethazine HCl (Phenergan) 25 mg IM Q6H PRN PRN Reason: Nausea/Vomiting Last Admin: 04/29/17 04:12 Dose: 25 mg Venlafaxine HCl (Effexor Xr) 37.5 mg PO BEDTIME RONNIE Last Admin: 04/28/17 20:02 Dose: 37.5 mg Discontinued Medications Diphenhydramine HCl (Benadryl) 25 mg IVPUSH ONETIME ONE Stop: 04/28/17 09:19 Last Admin: 04/28/17 09:26 Dose: 25 mg Sodium Chloride (Normal Saline) 1,000 mls @ 999 mls/hr IV .Bolus ONE Stop: 04/28/17 09:24 Last Admin: 04/28/17 08:41 Dose: 999 mls/hr Sodium Chloride (Normal Saline) 1,000 mls @ 999 mls/hr IV NOW STA Stop: 04/28/17 10:18 Last Admin: 04/28/17 09:24 Dose: 999 mls/hr Iopamidol (Isovue Multipack-370 (76%)) 100 ml IVPUSH ONETIME STA Stop: 04/28/17 16:16 Last Admin: 04/28/17 16:16 Dose: 100 ml Metoclopramide HCl (Reglan) 10 mg IVPUSH ONETIME ONE Stop: 04/28/17 09:19 Last Admin: 04/28/17 09:25 Dose: 10 mg Morphine Sulfate (Morphine) 1 mg IVPUSH Q4H PRN PRN Reason: Pain Last Admin: 04/28/17 16:29 Dose: 1 mg Ondansetron HCl (Zofran) 4 mg IVPUSH ONETIME ONE Stop: 04/28/17 08:25 Last Admin: 04/28/17 08:41 Dose: 4 mg Ondansetron HCl (Zofran) 4 mg IVPUSH ONETIME ONE Stop: 04/28/17 09:05 Last Admin: 04/28/17 09:08 Dose: 4 mg - Exam General: alert, oriented, cooperative HEENT: Pupils equal, EOMI Neck: supple Lungs: Clear to auscultation, Normal respiratory effort Cardiovascular: Regular Rate, Regular Rhythm Abdomen: other (hyperactive bowel sounds) Back Exam: Normal Inspection Extremities: no edema - Problem List Review Problem List Initiated/Reviewed/Updated: Yes - My Orders Last 24 Hours: My Active Orders 04/28/17 10:17 Ondansetron [Zofran] 4 mg IVPUSH Q4H PRN 04/28/17 10:30 Sodium Chloride 0.9% [Normal Saline] 1,000 ml IV ASDIRECTED 04/28/17 12:15 Potassium Chloride 40 meq PO DAILY 04/28/17 13:45 CULTURE STOOL + CAMPY+SHIGATOX [RM] Routine 04/28/17 21:00 Losartan [Cozaar] 25 mg PO BEDTIME Venlafaxine [Effexor XR] 37.5 mg PO BEDTIME 04/28/17 Dinner NPO [Nothing Per Oral Diet] [DIET] 04/30/17 05:11 BASIC METABOLIC PANEL,BMP [CHEM] AM CBC WITH AUTO DIFF [HEME] AM 05/01/17 05:11 BASIC METABOLIC PANEL,BMP [CHEM] AM CBC WITH AUTO DIFF [HEME] AM - Plan Plan:: 26 yo female admitted for enteritis most likely viral NPO except ice chips: consider ADAT abdomen/pelvis CT with contrast shows improvement enteritis. IVF @ 125 ml/hr IV zofran prn IV morphine prn anticipate discharge tomorrow.
[2017-04-29] MEDS: Potassium Chloride 10% 20 MEQ/15 ML Soln 30 ML UD Cup PO SCH (09:29)
[2017-04-29] MEDS: Venlafaxine 37.5 MG Cap.ER PO SCH (20:23)
[2017-04-29] MEDS: Losartan 50 MG Tab PO SCH (20:26)
[2017-04-30] MEDS: Morphine 4 MG/ML Syringe IVPUSH PRN ×3 (00:38→23:28)
[2017-04-30] MEDS: Sodium Chloride 0.9% 1,000 ML IV SCH (05:28)
[2017-04-30 06:16] LABS: CHLORIDE,CL 111 mmol/L (98-110); SODIUM,NA 137 mmol/L (136-146)
[2017-04-30] MEDS: Potassium Chloride 10% 20 MEQ/15 ML Soln 30 ML UD Cup PO SCH (08:05)
--- NOTE | 2017-04-30 13:33 | PCM.PN ---
- General Info Date of Service: 04/30/17 Subjective Update: she is feeling improved. no vomiting. diarrhea improved. - Patient Data Vitals - most recent: Last Vital Signs Temp 97.2 F 04/30/17 12:00 Pulse 56 L 04/30/17 12:00 Resp 17 04/30/17 12:00 BP 119/72 04/30/17 12:00 Pulse Ox 99 04/30/17 12:00 Weight - most recent: 52.6 kg I&O - last 24 hours: Intake & Output 04/29/17 04/30/17 04/30/17 22:59 06:59 14:59 Intake Total 2491 1250 Output Total 800 1050 Balance 1691 200 Lab Results last 24 hrs: Laboratory Results - last 24 hr 04/30/17 04/30/17 Range/Units 05:32 05:32 WBC 6.65 (4.0-11.0) K/uL RBC 4.52 (4.30-5.90) M/uL Hgb 13.3 (12.0-16.0) g/dL Hct 38.8 (36.0-46.0) % MCV 85.8 (80.0-98.0) fL MCH 29.4 (27.0-32.0) pg MCHC 34.3 (31.0-37.0) g/dL RDW Std Deviation 40.2 (28.0-62.0) fl RDW Coeff of Sherwin 13 (11.0-15.0) % Plt Count 207 (150-400) K/uL MPV 10.60 (7.40-12.00) fL Neut % (Auto) 64.8 (48.0-80.0) % Lymph % (Auto) 28.3 (16.0-40.0) % [place] % (Auto) 5.1 (0.0-15.0) % Eos % (Auto) 1.2 (0.0-7.0) % Baso % (Auto) 0.6 (0.0-1.5) % Neut # (Auto) 4.3 (1.4-5.7) K/uL Lymph # (Auto) 1.9 (0.6-2.4) K/uL [place] # (Auto) 0.3 (0.0-0.8) K/uL Eos # (Auto) 0.1 (0.0-0.7) K/uL Baso # (Auto) 0.0 (0.0-0.1) K/uL Nucleated RBC % 0.0 /100WBC Nucleated RBCs # 0 K/uL Sodium 137 (136-146) mmol/L Potassium 3.9 (3.5-5.1) mmol/L Chloride 111 H (98-110) mmol/L Carbon Dioxide 18 L (21-31) mmol/L BUN 13 (6.0-23.0) mg/dL Creatinine 0.6 (0.6-1.5) mg/dL Est Cr Clr Drug Dosing 102.06 mL/min Estimated GFR (MDRD) > 60.0 ml/min Glucose 64 (60-110) mg/dL Calcium 8.2 L (8.8-10.8) mg/dL Emilio Results last 24 hrs: Microbiology 04/28/17 13:45 Stool Culture - Final Stool / Feces Campylobacter Antigen Assay - Final NEGATIVE CAMPYLOBACTER AG - Final NEGATIVE FOR SHIGA TOXIN 1 - Final NEGATIVE FOR SHIGA TOXIN 2 Med Orders - Current: Current Medications Clonidine HCl (Catapres) 0.2 mg PO Q6H PRN PRN Reason: Hypertension Last Admin: 04/29/17 04:13 Dose: 0.2 mg Sodium Chloride (Normal Saline) 1,000 mls @ 125 mls/hr IV ASDIRECTED RONINE Last Admin: 04/30/17 05:28 Dose: 125 mls/hr Morphine Sulfate (Morphine) 4 mg IVPUSH Q2H PRN PRN Reason: Pain Last Admin: 04/30/17 10:04 Dose: 4 mg Ondansetron HCl (Zofran) 4 mg IVPUSH Q4H PRN PRN Reason: Nausea Last Admin: 04/29/17 17:37 Dose: 4 mg Potassium Chloride (Potassium Chloride) 40 meq PO DAILY RONNIE Last Admin: 04/30/17 08:05 Dose: 40 meq Promethazine HCl (Phenergan) 25 mg IM Q6H PRN PRN Reason: Nausea/Vomiting Last Admin: 04/29/17 04:12 Dose: 25 mg Venlafaxine HCl (Effexor Xr) 37.5 mg PO BEDTIME RONNIE Last Admin: 04/29/17 20:23 Dose: 37.5 mg Discontinued Medications Diphenhydramine HCl (Benadryl) 25 mg IVPUSH ONETIME ONE Stop: 04/28/17 09:19 Last Admin: 04/28/17 09:26 Dose: 25 mg Sodium Chloride (Normal Saline) 1,000 mls @ 999 mls/hr IV .Bolus ONE Stop: 04/28/17 09:24 Last Admin: 04/28/17 08:41 Dose: 999 mls/hr Sodium Chloride (Normal Saline) 1,000 mls @ 999 mls/hr IV NOW STA Stop: 04/28/17 10:18 Last Admin: 04/28/17 09:24 Dose: 999 mls/hr Iopamidol (Isovue Multipack-370 (76%)) 100 ml IVPUSH ONETIME STA Stop: 04/28/17 16:16 Last Admin: 04/28/17 16:16 Dose: 100 ml Losartan Potassium (Cozaar) 25 mg PO BEDTIME RONNIE Last Admin: 04/29/17 20:26 Dose: Not Given Metoclopramide HCl (Reglan) 10 mg IVPUSH ONETIME ONE Stop: 04/28/17 09:19 Last Admin: 04/28/17 09:25 Dose: 10 mg Morphine Sulfate (Morphine) 1 mg IVPUSH Q4H PRN PRN Reason: Pain Last Admin: 04/28/17 16:29 Dose: 1 mg Ondansetron HCl (Zofran) 4 mg IVPUSH ONETIME ONE Stop: 04/28/17 08:25 Last Admin: 04/28/17 08:41 Dose: 4 mg Ondansetron HCl (Zofran) 4 mg IVPUSH ONETIME ONE Stop: 04/28/17 09:05 Last Admin: 04/28/17 09:08 Dose: 4 mg - Exam General: alert, cooperative Neck: trachea midline Lungs: Normal respiratory effort Abdomen: bowel sounds present, soft. No: tenderness - Problem List & Annotations (1) Abdominal pain SNOMED Code(s): 60384802 Code(s): R10.9 - UNSPECIFIED ABDOMINAL PAIN Status: Acute Current Visit: Yes (2) Vomiting SNOMED Code(s): 735353446 Code(s): R11.10 - VOMITING, UNSPECIFIED Status: Acute Current Visit: Yes (3) Enteritis SNOMED Code(s): 36131458 Code(s): K52.9 - NONINFECTIVE GASTROENTERITIS AND COLITIS, UNSPECIFIED Status: Acute Current Visit: No - Problem List Review Problem List Initiated/Reviewed/Updated: Yes - My Orders Last 24 Hours: My Active Orders 04/30/17 Lunch Clear Liquid Diet [DIET] - Plan Plan:: 26 yo female admitted for enteritis most likely viral NPO except ice chips: consider ADAT abdomen/pelvis CT with contrast shows improvement enteritis. IVF @ 125 ml/hr IV zofran prn IV morphine prn anticipate discharge tomorrow. 04/30/2017 clear liquids started. advance diet as tolerated likely discharge tomorrow etiology of enteritis likely viral
[2017-04-30] MEDS ORDERED: Sodium Chloride 0.9% 10 ML Syringe FLUSH PRN (13:39)
[2017-04-30] MEDS ORDERED: Sodium Chloride 0.9% 2.5 ML Syringe FLUSH PRN (13:39)
[2017-04-30] MEDS ORDERED: Acetaminophen 325 MG Tab PO PRN (13:41)
[2017-04-30] MEDS: Venlafaxine 37.5 MG Cap.ER PO SCH (20:55)
[2017-05-01 06:40] LABS: CHLORIDE,CL 109 mmol/L (98-110); SODIUM,NA 139 mmol/L (136-146)
[2017-05-01] MEDS: Potassium Chloride 10% 20 MEQ/15 ML Soln 30 ML UD Cup PO SCH (08:09)
[2017-05-01] MEDS: Ondansetron 4 MG/2 ML SDV IVPUSH PRN ×3 (08:54→21:21)
[2017-05-01] MEDS: Morphine 4 MG/ML Syringe IVPUSH PRN ×7 (09:00→23:49)
--- NOTE | 2017-05-01 09:22 | PCM.PN ---
- General Info Date of Service: 05/01/17 Subjective Update: still feels nauseous and tearful. Does not feel she is ready to go home. - Review of Systems General: Reports: No Symptoms (decreased), Appetite HEENT: Reports: no symptoms Pulmonary: Reports: no symptoms Cardiovascular: Reports: No Symptoms Gastrointestinal: Reports: Abdominal pain Genitourinary: Reports: no symptoms Musculoskeletal: Reports: no symptoms Skin: Reports: no symptoms Neurological: Reports: No Symptoms - Patient Data Vitals - most recent: Last Vital Signs Temp 97.6 F 05/01/17 08:00 Pulse 65 05/01/17 08:00 Resp 16 05/01/17 08:00 BP 137/72 05/01/17 08:00 Pulse Ox 98 05/01/17 08:00 Weight - most recent: 52.6 kg I&O - last 24 hours: Intake & Output 04/30/17 05/01/17 05/01/17 22:59 06:59 14:59 Intake Total 300 200 Output Total 2600 1200 Balance -2300 -1000 Lab Results last 24 hrs: Laboratory Results - last 24 hr 05/01/17 05/01/17 Range/Units 05:56 05:56 WBC 6.11 (4.0-11.0) K/uL RBC 4.71 (4.30-5.90) M/uL Hgb 14.0 (12.0-16.0) g/dL Hct 40.0 (36.0-46.0) % MCV 84.9 (80.0-98.0) fL MCH 29.7 (27.0-32.0) pg MCHC 35.0 (31.0-37.0) g/dL RDW Std Deviation 39.6 (28.0-62.0) fl RDW Coeff of Sherwin 13 (11.0-15.0) % Plt Count 226 (150-400) K/uL MPV 10.70 (7.40-12.00) fL Neut % (Auto) 46.8 L (48.0-80.0) % Lymph % (Auto) 42.4 H (16.0-40.0) % [place] % (Auto) 6.7 (0.0-15.0) % Eos % (Auto) 3.1 (0.0-7.0) % Baso % (Auto) 1.0 (0.0-1.5) % Neut # (Auto) 2.9 (1.4-5.7) K/uL Lymph # (Auto) 2.6 H (0.6-2.4) K/uL [place] # (Auto) 0.4 (0.0-0.8) K/uL Eos # (Auto) 0.2 (0.0-0.7) K/uL Baso # (Auto) 0.1 (0.0-0.1) K/uL Nucleated RBC % 0.0 /100WBC Nucleated RBCs # 0 K/uL Sodium 139 (136-146) mmol/L Potassium 4.1 (3.5-5.1) mmol/L Chloride 109 (98-110) mmol/L Carbon Dioxide 24 (21-31) mmol/L BUN 9 (6.0-23.0) mg/dL Creatinine 0.6 (0.6-1.5) mg/dL Est Cr Clr Drug Dosing 102.06 mL/min Estimated GFR (MDRD) > 60.0 ml/min Glucose 90 (60-110) mg/dL Calcium 8.6 L (8.8-10.8) mg/dL Emilio Results last 24 hrs: Microbiology 04/28/17 13:45 Stool Culture - Final Stool / Feces Campylobacter Antigen Assay - Final NEGATIVE CAMPYLOBACTER AG - Final NEGATIVE FOR SHIGA TOXIN 1 - Final NEGATIVE FOR SHIGA TOXIN 2 Med Orders - Current: Current Medications Acetaminophen (Tylenol) 650 mg PO Q6H PRN PRN Reason: Pain Last Admin: 04/30/17 13:51 Dose: 650 mg Clonidine HCl (Catapres) 0.2 mg PO Q6H PRN PRN Reason: Hypertension Last Admin: 04/29/17 04:13 Dose: 0.2 mg Morphine Sulfate (Morphine) 4 mg IVPUSH Q2H PRN PRN Reason: Pain Last Admin: 05/01/17 09:00 Dose: 4 mg Ondansetron HCl (Zofran) 4 mg IVPUSH Q4H PRN PRN Reason: Nausea Last Admin: 05/01/17 08:54 Dose: 4 mg Potassium Chloride (Potassium Chloride) 40 meq PO DAILY RONNIE Last Admin: 05/01/17 08:09 Dose: 40 meq Promethazine HCl (Phenergan) 25 mg IM Q6H PRN PRN Reason: Nausea/Vomiting Last Admin: 04/29/17 04:12 Dose: 25 mg Sodium Chloride (Saline Flush) 10 ml FLUSH ASDIRECTED PRN PRN Reason: Keep Vein Open Sodium Chloride (Saline Flush) 2.5 ml FLUSH ASDIRECTED PRN PRN Reason: Keep Vein Open Venlafaxine HCl (Effexor Xr) 37.5 mg PO BEDTIME RONNIE Last Admin: 04/30/17 20:55 Dose: 37.5 mg Discontinued Medications Diphenhydramine HCl (Benadryl) 25 mg IVPUSH ONETIME ONE Stop: 04/28/17 09:19 Last Admin: 04/28/17 09:26 Dose: 25 mg Sodium Chloride (Normal Saline) 1,000 mls @ 999 mls/hr IV .Bolus ONE Stop: 04/28/17 09:24 Last Admin: 04/28/17 08:41 Dose: 999 mls/hr Sodium Chloride (Normal Saline) 1,000 mls @ 999 mls/hr IV NOW STA Stop: 04/28/17 10:18 Last Admin: 04/28/17 09:24 Dose: 999 mls/hr Sodium Chloride (Normal Saline) 1,000 mls @ 125 mls/hr IV ASDIRECTED RONNIE Last Admin: 04/30/17 05:28 Dose: 125 mls/hr Iopamidol (Isovue Multipack-370 (76%)) 100 ml IVPUSH ONETIME STA Stop: 04/28/17 16:16 Last Admin: 04/28/17 16:16 Dose: 100 ml Losartan Potassium (Cozaar) 25 mg PO BEDTIME RONNIE Last Admin: 04/29/17 20:26 Dose: Not Given Metoclopramide HCl (Reglan) 10 mg IVPUSH ONETIME ONE Stop: 04/28/17 09:19 Last Admin: 04/28/17 09:25 Dose: 10 mg Morphine Sulfate (Morphine) 1 mg IVPUSH Q4H PRN PRN Reason: Pain Last Admin: 04/28/17 16:29 Dose: 1 mg Ondansetron HCl (Zofran) 4 mg IVPUSH ONETIME ONE Stop: 04/28/17 08:25 Last Admin: 04/28/17 08:41 Dose: 4 mg Ondansetron HCl (Zofran) 4 mg IVPUSH ONETIME ONE Stop: 04/28/17 09:05 Last Admin: 04/28/17 09:08 Dose: 4 mg - Exam General: alert, oriented HEENT: Pupils equal, EOMI Neck: supple, trachea midline Lungs: Clear to auscultation Cardiovascular: Regular Rate, Regular Rhythm Abdomen: other (hyperactive bowl sounds) Extremities: no edema Skin: warm, dry, intact Neurological: no new focal deficit Psy/Mental Status: alert, normal affect, normal mood - Problem List Review Problem List Initiated/Reviewed/Updated: Yes - Plan Plan:: 26 yo female admitted for enteritis most likely viral NPO except ice chips: consider ADAT abdomen/pelvis CT with contrast shows improvement enteritis. IVF @ 125 ml/hr IV zofran prn IV morphine prn anticipate discharge tomorrow. 04/30/2017 clear liquids started. advance diet as tolerated likely discharge tomorrow etiology of enteritis likely viral 05/01/17 tolerating clears but not solids: episode of n/v x 1 when she was seen this morning cbc and bmp unremarkable. anticipate discharge today or tomorrow.
[2017-05-01] MEDS: Promethazine 25 MG/ML SDV IM PRN (10:02)
[2017-05-01] MEDS: Venlafaxine 37.5 MG Cap.ER PO SCH (20:24)
[2017-05-02 07:58] VITALS: BP 127/78
--- NOTE | 2017-05-02 09:12 | PCM.DCSUM1 ---
Discharge Summary - Hospital Course Free Text/Narrative:: 26 yo female with history of WPW , depression admitted for Viral gastroenteritis. She was unable to tolerate oral intake with persistent nausea and vomiting. She was kept NPO, hydrated with IVF along with zofran. Repeat abdominal CT showed improvement in enteritis. She was able to tolerate diet. She is discharged in stable condition. She may take zofran prn. She is to follow up with me in clinic and Dr. Eduardo freelance director.. - Discharge Data Discharge Date: 05/02/17 Discharge Disposition: Home, Self-Care 01 Condition: Good - Discharge Plan Home Medications: Home Meds Losartan Potassium 25 mg PO BEDTIME 04/26/17 [History] Venlafaxine [Effexor XR] 37.5 mg PO BEDTIME 04/26/17 [History] Ondansetron HCl [Zofran] 4 mg PO Q4HR PRN #10 tablet 04/27/17 [Rx] Patient Handouts: Abdominal Pain, Adult, [id number], Nausea and Vomiting, Adult Referrals: Thor Early MD [Physician] - 05/09/17 3:00 pm - General Info Date of Service: 05/02/17 Functional Status: Reports: pain controlled, tolerating diet - Review of Systems General: Reports: No Symptoms HEENT: Reports: no symptoms Pulmonary: Reports: no symptoms Cardiovascular: Reports: No Symptoms Gastrointestinal: Reports: Abdominal pain (improving) Genitourinary: Reports: no symptoms Musculoskeletal: Reports: no symptoms Skin: Reports: no symptoms Neurological: Reports: No Symptoms Psychiatric: Reports: other (tearful) - Patient Data Vitals - Most Recent: Last Vital Signs Temp 97.8 F 05/02/17 07:57 Pulse 63 05/02/17 07:57 Resp 20 05/02/17 07:57 BP 127/78 05/02/17 07:57 Pulse Ox 97 05/02/17 07:57 Weight - Most Recent: 52.6 kg I&O - Last 24 hours: Intake & Output 05/01/17 05/02/17 05/02/17 22:59 06:59 14:59 Intake Total 350 360 Output Total 1000 Balance -650 360 Med Orders - Current: Current Medications Acetaminophen (Tylenol) 650 mg PO Q6H PRN PRN Reason: Pain Last Admin: 04/30/17 13:51 Dose: 650 mg Clonidine HCl (Catapres) 0.2 mg PO Q6H PRN PRN Reason: Hypertension Last Admin: 04/29/17 04:13 Dose: 0.2 mg Morphine Sulfate (Morphine) 4 mg IVPUSH Q2H PRN PRN Reason: Pain Last Admin: 05/01/17 23:49 Dose: 4 mg Ondansetron HCl (Zofran) 4 mg IVPUSH Q4H PRN PRN Reason: Nausea Last Admin: 05/01/17 21:21 Dose: 4 mg Potassium Chloride (Potassium Chloride) 40 meq PO DAILY RONNIE Last Admin: 05/01/17 08:09 Dose: 40 meq Promethazine HCl (Phenergan) 25 mg IM Q6H PRN PRN Reason: Nausea/Vomiting Last Admin: 05/01/17 10:02 Dose: 25 mg Sodium Chloride (Saline Flush) 10 ml FLUSH ASDIRECTED PRN PRN Reason: Keep Vein Open Sodium Chloride (Saline Flush) 2.5 ml FLUSH ASDIRECTED PRN PRN Reason: Keep Vein Open Venlafaxine HCl (Effexor Xr) 37.5 mg PO BEDTIME RONNIE Last Admin: 05/01/17 20:24 Dose: 37.5 mg Discontinued Medications Diphenhydramine HCl (Benadryl) 25 mg IVPUSH ONETIME ONE Stop: 04/28/17 09:19 Last Admin: 04/28/17 09:26 Dose: 25 mg Sodium Chloride (Normal Saline) 1,000 mls @ 999 mls/hr IV .Bolus ONE Stop: 04/28/17 09:24 Last Admin: 04/28/17 08:41 Dose: 999 mls/hr Sodium Chloride (Normal Saline) 1,000 mls @ 999 mls/hr IV NOW STA Stop: 04/28/17 10:18 Last Admin: 04/28/17 09:24 Dose: 999 mls/hr Sodium Chloride (Normal Saline) 1,000 mls @ 125 mls/hr IV ASDIRECTED RONNIE Last Admin: 04/30/17 05:28 Dose: 125 mls/hr Iopamidol (Isovue Multipack-370 (76%)) 100 ml IVPUSH ONETIME STA Stop: 04/28/17 16:16 Last Admin: 04/28/17 16:16 Dose: 100 ml Losartan Potassium (Cozaar) 25 mg PO BEDTIME RONNIE Last Admin: 04/29/17 20:26 Dose: Not Given Metoclopramide HCl (Reglan) 10 mg IVPUSH ONETIME ONE Stop: 04/28/17 09:19 Last Admin: 04/28/17 09:25 Dose: 10 mg Morphine Sulfate (Morphine) 1 mg IVPUSH Q4H PRN PRN Reason: Pain Last Admin: 04/28/17 16:29 Dose: 1 mg Ondansetron HCl (Zofran) 4 mg IVPUSH ONETIME ONE Stop: 04/28/17 08:25 Last Admin: 04/28/17 08:41 Dose: 4 mg Ondansetron HCl (Zofran) 4 mg IVPUSH ONETIME ONE Stop: 04/28/17 09:05 Last Admin: 04/28/17 09:08 Dose: 4 mg - Exam General: Reports: alert, oriented HEENT: Reports: Pupils equal, EOMI Neck: Reports: supple, trachea midline Lungs: Reports: Clear to auscultation, Normal respiratory effort Cardiovascular: Reports: Regular Rate, Regular Rhythm Abdomen: Reports: bowel sounds present, soft, no tenderness Extremities: Reports: no edema Skin: Reports: warm, dry, intact *Q Meaningful Use (DIS) - VTE *Q VTE Criteria *Q: - Stroke *Q Stroke Criteria *Q: - AMI *Q AMI Criteria *Q:
[2017-05-02] MEDS: Potassium Chloride 10% 20 MEQ/15 ML Soln 30 ML UD Cup PO SCH (09:39)
== END 2017-05-02 09:57 | disposition home or self-care (01) | DRG 392 ==
LOC: MW.ED 08:11 → MW.MS 10:02 → OBSVTOIN 10:14 → MW.MS 12:03
PROVIDERS: ADMIT Family Medicine; ATTEND Family Medicine
DX: A08.4 Viral intestinal infection, unspecified (principal); I10 Essential (primary) hypertension; I45.6 Pre-excitation syndrome; F32.9 Major depressive disorder, single episode, unspecified; F17.200 Nicotine dependence, unspecified, uncomplicated; Z79.899 Other long term (current) drug therapy
CPT/HCPCS: 36415; 74177; 74177-26; 80048; 80053; 80305; 81001; 83690; 84703; 85025; 87046; 87899; 96361; 96374; 96375; 99285; 99285-25; A9270-GY; J1200; J2270; J2405; J2550; J2765; J7040; Q9967